=== PATIENT | female | born 1995 | race Caucasian/White ===

== ENCOUNTER 2018-12-08 13:03 | Emergency (ER) | payer OTHER ==
[~2018-12-08 13:03] MED LIST: AMPH30TA10 PO; LORA-1456 PO; MULT-1379 PO; NORE-29 PO; OLAN5TAB25 PO; ORAL BIRTH CONTROL
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
[2018-12-08] MEDS ORDERED: HYDR-385 PO (15:12)
[2018-12-08 15:29] VITALS: BP 126/88
== END 2018-12-08 15:31 | disposition home or self-care (01) ==
LOC: ER 13:11
DX: S82.001A Unspecified fracture of right patella, initial encounter for closed fracture (principal); V49.60XA Unspecified car occupant injured in collision with unspecified motor vehicles in traffic accident, initial encounter
CPT/HCPCS: 70450; 71046; 71100; 72120; 72125; 73564; 99284; L1830